=== PATIENT | female | born 1975 | race Caucasian/White ===

== ENCOUNTER 2019-03-21 07:21 | Outpatient (RCR) | payer MEDICARE, SELFPAY | END 2019-03-30 23:59 | disposition home or self-care (01) | LOC: SPT 07:21 | PROVIDERS: Family Provider Family Medicine; PCP Family Medicine; Visit Provider Family Medicine | DX: M25.512 Pain in left shoulder (principal) | CPT/HCPCS: 97110; 97162 ==

== ENCOUNTER 2019-03-26 16:20 | Outpatient (CLI) | payer MEDICARE, SELFPAY ==
--- NOTE | 2019-03-26 | US_ITS ---
WS: [id number] LEFT LOWER EXTREMITY VENOUS ULTRASOUND EXAMINATION CLINICAL INFORMATION: LEFT LEG PAIN COMPARISON: None. FINDINGS: Subtotal thrombus visualized in the left iliac, common femoral vein, distal superficial femoral vein, popliteal vein, and peroneal veins. Additional thrombus seen in branch of posterior tibial vein. Rig ht iliac vein appears patent. US/ROR venous duplex LE LT IMPRESSION: Left lower extremity DVT as described above
== END 2019-03-26 16:21 | disposition home or self-care (01) ==
LOC: RADOUTREAD 03-27 07:17
PROVIDERS: Family Provider Family Medicine; PCP Family Medicine; Visit Provider Family Medicine
DX: Z76.89 Persons encountering health services in other specified circumstances (principal)

== ENCOUNTER 2019-03-26 17:22 | Outpatient (CLI) | payer MEDICARE, SELFPAY ==
--- NOTE | 2019-03-26 | CTR_ITS ---
PROCEDURE INFORMATION: Exam: CT Abdomen And Pelvis With Contrast Exam date and time: 03/26/2019 5:43 PM Age: 43 years old Clinical indication: Abnormal findings; Abnormal radiologic finding of the abdomen; Radiologic exam and body structure: Dvt per US; Prior surgery; Surgery date: 6+ months; Surgery type: Spine, gb; Patient HX: PT states she had an US done in the clinic with a dvt shown in the iliac; Additional info: Dvt extending into the iliac TECHNIQUE: Imaging protocol: Computed tomography of the abdomen and pelvis with intravenous contrast. Total DLP: 1781.81 mGy-cm Radiation optimization: All CT scans at this facility use at least one of these dose optimization techniques: automated exposure control; mA and/or kV adjustment per patient size (includes targeted exams where dose is matched to clinical indication); or iterative reconstruction. Contrast material: OMNIPAQUE 300; Contrast volume: 95 ml; Contrast route: IV; COMPARISON: CT abdomen pelvis wo con [id number] 06/10/2017 2:04 PM FINDINGS: Liver: There is a diffuse decrease in hepatic parenchymal density, consistent with fatty infiltration. Few tiny hepatic hypodensities are too small to characterize but not well seen on the prior noncontrast study. Gallbladder and bile ducts: There has been a cholecystectomy. There is no common bile duct dilation. Pancreas: Normal. No ductal dilation. Spleen: Hypodense lesion in the spleen image 21 is unchanged and may be a cyst or hemangioma. Adrenals: Normal. No mass. Kidneys and ureters: There is no evidence of hydronephrosis. There is no evidence of renal calcifications. Stomach and bowel: Unremarkable. No obstruction. No mucosal thickening. Appendix: No evidence of appendicitis. Intraperitoneal space: Unremarkable. No free air. No significant fluid collection. Vasculature: An inferior vena cava filter lies in appropriate position. No thrombus is identified in the inferior vena cava, iliac veins or femoral veins. Lymph nodes: Unremarkable.No enlarged lymph nodes. Bladder: There is nonspecific bladder wall thickening. This may be related to incomplete distention. Reproductive: Unremarkable as visualized. Probable 1.3 cm cyst right ovary. Bones/joints: Stable postoperative changes in the lower lumbar spine. Soft tissues: There is a fat-containing umbilical hernia. Multiple large varicosities are noted in the subcutaneous fat of the lower abdominal wall and both groin. Small fat filled supraumbilical hernia is unchanged. CT/CT abdomen pelvis w con* [id number] IMPRESSION: 1. No acute abnormality or inflammatory changes. No ileus or obstruction. 2. Filter in the inferior vena cava is in good position. No thrombus is identified in the inferior vena cava, iliac vessels or visualized common femoral veins. History indicates a thrombus in the iliac vessels but this is not identified on this exam. Both iliac veins are well opacified. Varicosities are noted in the lower abdominal wall. Radiation Dose CTDIVOL = (mGy): DLP = 1781.81 (mGy-cm)
[2019-03-26] MEDS: iohexol 350 mg/mL 100 mL Btl IV (17:46)
== END 2019-03-26 17:23 | disposition home or self-care (01) ==
PROVIDERS: Family Provider Family Medicine; PCP Family Medicine; Visit Provider Family Medicine
DX: I82.429 Acute embolism and thrombosis of unspecified iliac vein (principal); R94.8 Abnormal results of function studies of other organs and systems
CPT/HCPCS: 74177

== ENCOUNTER 2019-03-31 06:00 | Outpatient (RCR) | payer MEDICARE, SELFPAY | END 2019-04-28 23:59 | disposition home or self-care (01) | LOC: SPT 06:00 | PROVIDERS: Family Provider Family Medicine; PCP Family Medicine; Visit Provider Family Medicine | DX: M25.512 Pain in left shoulder (principal) | CPT/HCPCS: 97110; 97140 ==

== ENCOUNTER 2021-06-10 06:14 | Outpatient (CLI) | payer MEDICARE, SELFPAY ==
--- NOTE | 2021-06-10 | USCV_ITS ---
Wright, [place] Age: 46 Gender: F : 1975 Exam Date: 06/10/2021 06:52 Ordering Phys: Darin Aburto MD Technologist: Exam Location: [facility] – [place] Indication: murmur BP: 125 / 75 HR: 74 Rhythm: Sinus Technical Quality: MEASUREMENTS (Male / Female) Normal Values 2D ECHO LV Diastolic Diameter PLAX 4.1 cm 4.2 - 5.9 / 3.9 - 5.3 cm LV Systolic Diameter PLAX 3.0 cm IVS Diastolic Thickness 1.3 cm 0.6 - 1.0 / 0.6 - 0.9 cm IVS Systolic Thickness 1.6 cm LVPW Diastolic Thickness 1.4 cm 0.6 - 1.0 / 0.6 - 0.9 cm LVPW Systolic Thickness 1.6 cm LVOT Diameter 2.0 cm LV Ejection Fraction 2D Teich 50.1 % LV Ejection Fraction MOD 2C 78.2 % LV Ejection Fraction 2C AL 78.0 % LA Diameter 3.7 cm Aorta at Sinotubular Diameter 4.5 cm M-MODE Aortic Annulus Diameter 4.0 cm LA Ao Ratio MM 0.9 MV E Point Septal Separation 1.1 cm DOPPLER AV Peak Velocity 134.0 cm/s LVOT Peak Velocity 100.0 cm/s AV Area Cont Eq vti 3.4 cm squared AV Area Cont Eq pk 2.4 cm squared MV Area PHT 5.0 cm squared Mitral E to A Ratio 0.8 MV E' Velocity 40.5 cm/s Mitral E to MV E' Ratio 6.7 Mitral E to LV E' Lateral Ratio 5.9 Mitral E to LV E' Septal Ratio 7.7 TR Peak Velocity 192.0 cm/s TR Peak Gradient 14.7 mmHg TV Peak E Velocity 100.0 cm/s PV Peak Velocity 88.0 cm/s FINDINGS Left Ventricle Normal left ventricular size. LV systolic function is normal with EF of 50-55%. No regional wall motion abnormalities. Grade 1 diastolic dysfunction Right Ventricle The right ventricle is normal in size and function. Right Atrium The right atrium is normal in size. Left Atrium The left atrium is normal in size. Mitral Valve Structurally normal mitral valve without significant stenosis or prolapse. There is no mitral regurgitation. Aortic Valve Grossly normal without significant sclerosis or stenosis. There is mild aortic regurgitation. Tricuspid Valve Structurally normal tricuspid valve without significant stenosis or regurgitation. Insufficient TR jet to calculate RVSP Pulmonic Valve Not well visualized Pericardium Normal pericardium without effusion. Aorta Ascending aorta is dilated and measures 4.3 cm CONCLUSIONS LV systolic function is normal with EF of 50-55% Grade 1 diastolic dysfunction Mild aortic regurgitation Ascending aorta is dilated and measures 4.3 cm. Recommend CTA to assess the size accurately No comparison studies available Dwain Garcia MD (Electronically Signed) Final Date: 10 June 2021 11:09 S
== END 2021-06-10 06:15 | disposition home or self-care (01) ==
LOC: RAD 06:15
PROVIDERS: Family Provider Family Medicine; PCP Family Medicine; Visit Provider Family Medicine
DX: R01.1 Cardiac murmur, unspecified (principal); I35.0 Nonrheumatic aortic (valve) stenosis
CPT/HCPCS: 93306

== ENCOUNTER 2022-03-11 07:36 | Outpatient (CLI) | payer MEDICARE, SELFPAY ==
--- NOTE | 2022-03-11 07:52 | USCV_ITS ---
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 Normal resting ABIs and TBIs bilaterally 2. No significant arterial obstruction, based on the above findings Dr Dallas Zamora MD [facility] (Electronically Signed) Final Date: 11 March 2022 20:06 S
== END 2022-03-11 07:37 | disposition home or self-care (01) ==
PROVIDERS: PCP Family Medicine; Visit Provider Family Medicine
DX: R09.89 Other specified symptoms and signs involving the circulatory and respiratory systems (principal)
CPT/HCPCS: 93922

== ENCOUNTER 2023-03-08 06:28 | Outpatient (CLI) | payer MEDICARE, SELFPAY ==
--- NOTE | 2023-03-08 | USCV_ITS ---
Preston, [place] Age: 47 Gender: F : 1975 Exam Date: 03/08/2023 06:59 Ordering Phys: Lexie Marin MD Technologist: MERON Exam Location: [facility] – [place] Indication: MURMUR BP: 113 / 80 HR: 75 Rhythm: Sinus Technical Quality: Adequate MEASUREMENTS (Male / Female) Normal Values 2D ECHO LVOT Diameter 1.9 cm LV Ejection Fraction MOD 2C 60.8 % LV Ejection Fraction 2C AL 64.1 % LA Diameter 3.4 cm LA Width 2.8 cm LA Height 4.6 cm RA Width 2.1 cm RA Height 4.9 cm Aorta at Sinotubular Diameter 2.7 cm M-MODE Aortic Annulus Diameter 3.2 cm LA Ao Ratio MM 1.0 MV E Point Septal Separation 0.7 cm DOPPLER AV Peak Velocity 184.0 cm/s LVOT Peak Velocity 121.0 cm/s AV Area Cont Eq vti 2.1 cm squared AV Area Cont Eq pk 1.9 cm squared MV Peak Velocity 94.0 cm/s MV Area PHT 3.6 cm squared Mitral E to A Ratio 0.7 MV E' Velocity 36.5 cm/s Mitral E to MV E' Ratio 8.6 Mitral E to LV E' Lateral Ratio 8.9 Mitral E to LV E' Septal Ratio 8.4 TR Peak Velocity 141.1 cm/s TR Peak Gradient 8.0 mmHg TR Mean Velocity 114.9 cm/s TR Mean Gradient 5.5 mmHg TR Velocity Time Integral 53.6 cm TV Peak E Velocity 69.0 cm/s Right Atrial Pressure 8.0 mmHg Pulmonary Artery Systolic Pressu 16.0 mmHg PV Peak Velocity 100.0 cm/s RV Acceleration Time 0.2 s RV Ejection Time 0.3 s RV AcT/ET 0.6 FINDINGS Left Ventricle Left ventricle is normal in size. LV systolic function is normal with EF of 55 to 60%. No regional wall motion abnormalities are seen. Grade 1 diastolic dysfunction. Right Ventricle Normal in size and function Right Atrium Normal in size Left Atrium Normal in size Mitral Valve Structurally normal mitral valve. Trace mitral regurgitation. Aortic Valve Grossly normal aortic valve. No significant stenosis. Mild to moderate aortic regurgitation. Tricuspid Valve Mild tricuspid regurgitation. Insufficient TR jet to calculate RVSP Pulmonic Valve Trace pulmonic regurgitation Pericardium Normal Aorta Ascending aorta is dilated with diameter of 4.2cm. IVC Appears to be normal CONCLUSIONS LV systolic function is normal with EF 55 to 60%. Grade 1 diastolic dysfunction. Trace mitral regurgitation. Mild to moderate aortic regurgitation. Mild tricuspid regurgitation Trace pulmonic regurgitation Ascending aorta is dilated with diameter of 4.2 cm. Compared to prior echocardiogram, patient's aortic regurgitation has progressed and is mild to moderate now. Ascending aorta is dilated. Recommend CTA to assess accurate size. Dwain Garcia MD (Electronically Signed) Final Date: 23 March 2023 16:04 S
== END 2023-03-08 06:29 | disposition home or self-care (01) ==
LOC: RAD 06:29
PROVIDERS: PCP Family Medicine; Visit Provider Surgery Vascular Surgery
DX: Z01.818 Encounter for other preprocedural examination (principal); I08.2 Rheumatic disorders of both aortic and tricuspid valves
CPT/HCPCS: 93306

== ENCOUNTER 2024-04-03 07:12 | Outpatient (CLI) | payer MEDICARE, SELFPAY ==
--- NOTE | 2024-04-03 07:19 | USCV_ITS ---
Vowinckel, [place] Age: 48 Gender: F : 1975 Exam Date: 04/03/2024 07:54 Ordering Phys: Darin Aburto MD Technologist: Exam Location: [facility] [place] [facility] [place] Indication: cp BP: 130 / 80 HR: 70 Rhythm: Sinus Technical Quality: Adequate MEASUREMENTS (Male / Female) Normal Values 2D ECHO LVOT Diameter 2.1 cm LV Ejection Fraction MOD 4C 56.6 % LV Ejection Fraction MOD 2C 51.4 % LV Ejection Fraction 2C AL 54.8 % LA Diameter 3.6 cm RA Systolic Volume 4C AL 32.2 ml RA Systolic Volume 4C MOD 28.7 ml Aorta at Sinotubular Diameter 4.8 cm M-MODE LA Ao Ratio MM 1.2 AV Cusp Separation MM 2.8 cm DOPPLER AV Peak Velocity 145.0 cm/s LVOT Peak Velocity 98.0 cm/s AV Area Cont Eq vti 2.4 cm squared AV Area Cont Eq pk 2.3 cm squared MV Peak Velocity 83.0 cm/s MV Area PHT 4.0 cm squared Mitral E to A Ratio 0.7 TR Peak Velocity 130.0 cm/s TR Peak Gradient 6.8 mmHg TV Peak E Velocity 79.0 cm/s PV Peak Velocity 82.0 cm/s FINDINGS Left Ventricle Left ventricle is normal in size. LV systolic function is normal with EF of 55 to 60%. No regional wall motion abnormalities are seen. Grade 1 diastolic dysfunction. Right Ventricle Normal in size and function Right Atrium Normal in size Left Atrium Normal in size Mitral Valve Structurally normal valve. Trace mitral regurgitation. Aortic Valve Grossly normal. No significant stenosis. Mild aoric regurgitation. Tricuspid Valve Trace tricuspid regurgitation. Insufficient TR jet to calculate RVSP Pulmonic Valve Not well visualized Pericardium Normal Aorta Ascending aorta is enlarged with diameter of 5.1cm IVC Not well visualized CONCLUSIONS LV systolic function is normal with EF 55 to 60%. Grade 1 diastolic dysfunction. Trace mitral regurgitation. Mild aortic regurgitation. Trace tricuspid regurgitation Ascending aorta is significantly enlarged with diameter of 5.1 cm. Compared to prior echocardiogram from 2023, ascending aortic aneurysm seems to have progressed significantly. Recommend performing CTA to accurately assess size and further management. Dwain Garcia MD (Electronically Signed) Final Date: 04 April 2024 09:07 S
--- NOTE | 2024-04-03 07:19 | USCV_ITS ---
Alvin Celia Age: 48 Gender: F : 1975 Exam Date: 04/03/2024 07:27 Ordering Phys: Darin Aburto MD Technologist: USR [place] [facility] [place]ication: screening. pt claims she had CT done and had a 5cm aneurysm HISTORY: Diameter (cm) AP x Transverse x Length Velocity (cm/s) Waveform Prox Aorta: 1.50 x 1.70 x 135.70 Mid Aorta: 1.50 x 1.60 x 107.60 Distal Aorta: 1.80 x 2.30 x 115.70 Right Iliac Prox: 1.28 x 1.32 x 99.30 Left Iliac Prox: 1.44 x 1.58 x 144.50 Stent Prox Landing x x Aneurysmal Sac Max x x Lt Lat Sac Dim Rt Lat Sac Dim Stent Dist Landing x x Right Iliac Stent x x Left Iliac Stent x x Right Renal Art Left Renal Art FINDINGS: Comparison: none available. No evidence of abdominal aortic or bilateral iliac aneurysm. Normal Doppler flow velocites noted throught the aorta and common iliac arteries. CONCLUSIONS No evidence of abdominal aortic aneurysm. Dr. Elham Vásquez DO (Electronically Signed) Final Date: 03 April 2024 09:25 S
== END 2024-04-03 07:13 | disposition home or self-care (01) ==
PROVIDERS: PCP Family Medicine; Visit Provider Family Medicine
DX: I35.1 Nonrheumatic aortic (valve) insufficiency (principal); I71.21 Aneurysm of the ascending aorta, without rupture; R93.1 Abnormal findings on diagnostic imaging of heart and coronary circulation
CPT/HCPCS: 76706; 93306

== ENCOUNTER 2024-04-24 07:47 | Outpatient (CLI) | payer MEDICARE, SELFPAY ==
--- NOTE | 2024-04-24 07:52 | CT_ITS ---
WS: [id number] CTA THORACIC TECHNIQUE: Noncontrast and contrast enhanced CTA of the thoracic aorta with coronal and sagittal reformatted images and maximum intensity projection (MIP) images. CLINICAL INFORMATION: ABNORMAL ULTRASOUND COMPARISON: 2015 DLP: 954.[address] scans at [facility] use at least one of these dose optimization techniques: automated exposure control; mA and/or kV adjustment per patient size (includes targeted exams where dose is matched to clinical indication); or iterative reconstruction. FINDINGS: Aneurysmal ascending thoracic aorta new compared to 2015. Today this measures approximately 5.2 cm in maximum dimension. Recommend vascular surgery consultation. Proximal main pulmonary arteries are patent. Normal caliber descending thoracic aorta. Celiac and SMA are patent. Adrenal glands are normal. Cholecystectomy clips. Small thyroid nodules. No axillary lymphadenopathy. Lungs are well aerated. No acute pulmonary infiltrates. 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 CT/CT angio chest [id number] IMPRESSION: Aneurysmal ascending thoracic aorta measuring 5.2 cm. This is new since 2015. [facility] vascular surgery consultation.
[2024-04-24] MEDS: iohexol 350 mg/mL 500 mL Btl (per mL) IV (08:30)
== END 2024-04-24 07:48 | disposition home or self-care (01) ==
PROVIDERS: PCP Family Medicine; Visit Provider Family Medicine
DX: R93.89 Abnormal findings on diagnostic imaging of other specified body structures (principal); I77.89 Other specified disorders of arteries and arterioles; E04.2 Nontoxic multinodular goiter; M47.894 Other spondylosis, thoracic region; M47.896 Other spondylosis, lumbar region
CPT/HCPCS: 71275

== ENCOUNTER → 2024-11-29 13:30 | Outpatient (BNVA) | payer MEDICARE, SELFPAY | PROVIDERS: PCP Family Medicine; Referring Provider Family Medicine; Visit Provider Internal Medicine Cardiovascular Disease | DX: R07.9 Chest pain, unspecified (principal) | CPT/HCPCS: 93005 ==

== ENCOUNTER → 2025-01-21 14:52 | Outpatient (BNVA) | payer MEDICARE, SELFPAY | PROVIDERS: PCP Family Medicine; Visit Provider Family Medicine Adult Medicine | DX: M31.6 Other giant cell arteritis (principal) | CPT/HCPCS: 85651; 86140 ==

== ENCOUNTER → 2025-02-07 07:48 | Outpatient (BNVA) | payer MEDICARE, SELFPAY | PROVIDERS: PCP Family Medicine; Visit Provider Dermatology | DX: D22.5 Melanocytic nevi of trunk (principal); L81.4 Other melanin hyperpigmentation; L91.0 Hypertrophic scar; D48.5 Neoplasm of uncertain behavior of skin | CPT/HCPCS: 11102; 99203 ==